=== PATIENT | male | born 1935 | race Caucasian/White ===

== ENCOUNTER → 2016-09-10 | Outpatient (CLI) | payer OTHER, MEDICARE ==
--- NOTE | 2016-09-10 14:34 | CR ---
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 Achilles c alcaneal and plantar calcaneal enthesophytes are noted. There is moderate thickening of the Nacho s tendon. No fracture or acute osseous abnormality.
== END ==
LOC: MW.CHPOD 09:24
PROVIDERS: ATTEND Podiatrist Foot & Ankle Surgery
DX: M20.62 Acquired deformities of toe(s), unspecified, left foot (principal); M79.672 Pain in left foot; G89.29 Other chronic pain; M20.40 Other hammer toe(s) (acquired), unspecified foot
CPT/HCPCS: 73630; G0463

== ENCOUNTER → 2016-11-06 | Outpatient (CLI) | payer OTHER, MEDICARE | LOC: MW.CHNEURO 08:00 | PROVIDERS: ATTEND Psychiatry & Neurology Neuromuscular Medicine | DX: G20 Parkinson's disease (principal) | CPT/HCPCS: 99214 ==